=== PATIENT | male | born 1980 ===

== ENCOUNTER 2016-08-31 05:21 | Emergency (ER) | payer MEDICARE, OTHER ==
[2016-08-31 05:21] VITALS: BMI 32.3
[2016-08-31 05:45] VITALS: RESP 20
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
[2016-08-31 07:13] VITALS: BP 104/60; PULSE 59; TEMP 98.4; O2SAT 95
--- NOTE | 2016-08-31 09:30 | RAD ---
PROCEDURE: Radiographs of the Right Shoulder three views HISTORY: Right shoulder pain COMPARISON: No prior. FINDINGS: BONES: Normal. No fracture. JOINTS: Normal. Glenohumeral and acromioclavicular joints preserved. No osteoarthritis. SOFT TISSUES: Normal. OTHER FINDINGS: None. IMPRESSION: Negative acute. If pain persists, consider MRI.
== END 2016-08-31 07:12 | disposition home or self-care (01) ==
LOC: C.ER 05:21
DX: S40.011A Contusion of right shoulder, initial encounter (principal); S00.83XA Contusion of other part of head, initial encounter; Y08.02XA Assault by strike by baseball bat, initial encounter; Y92.9 Unspecified place or not applicable

== ENCOUNTER 2017-01-02 18:30 | Emergency (ER) | payer MEDICARE, OTHER ==
[2017-01-02 18:30] VITALS: BMI 32.3
[2017-01-02 18:38] VITALS: BP 125/76; PULSE 81; RESP 18; TEMP 98.2; O2SAT 99
--- NOTE | 2017-01-02 18:57 | C.PDOC ---
History Of Present Illness 36 y/o male presents to the ED for evaluation of bilateral foot pain for the past several months. Pt reports that he is homeless, and he walks a lot. Otherwise, denies any injury, sensory changes, swelling, or fever. Time Seen by Provider: 01/02/17 18:42 Chief Complaint (Nursing): Lower Extremity Problem/Injury History Per: Patient History/Exam Limitations: no limitations Onset/Duration Of Symptoms: Days Current Symptoms Are (Timing): Still Present Recent travel outside of the [place]: No Additional History Per: Patient Past Medical History Reviewed: Historical Data, Nursing Documentation, Vital Signs Vital Signs: Last Vital Signs Temp 98.2 F 01/02/17 18:35 Pulse 81 01/02/17 18:35 Resp 18 01/02/17 18:35 BP 125/76 01/02/17 18:35 Pulse Ox 99 01/02/17 21:26 - Medical History PMH: Anxiety, Bipolar Disorder, Depression, Hepatitis, Schizophrenia Denies: HIV, HTN, Chronic Kidney Disease, Seizures, Sexually Transmitted Disease Surgical History: Appendectomy - [facility] Procedures GROUP PSYCHOTHERAPY (04/18/15) INDIVID PSYCHOTHERAP NEC (11/12/13) INDIVIDUAL PSYCHOTHERAPY, SUPPORTIVE (04/18/15) INJECT/INFUSE NEC (09/06/13) OTHER GROUP THERAPY (11/12/13) PSYCHIAT DRUG THERAP NEC (03/12/14) Family History: States: Unknown Family Hx - Social History Hx Tobacco Use: Yes Hx Alcohol Use: No Hx Substance Use: No - Immunization History Hx Tetanus Toxoid Vaccination: No Hx Influenza Vaccination: No Hx Pneumococcal Vaccination: No Review Of Systems Except As Marked, All Systems Reviewed And Found Negative. Constitutional: Negative for: Fever, Chills Musculoskeletal: Positive for: Foot Pain Neurological: Negative for: Weakness, Numbness Physical Exam - Physical Exam Appears: Non-toxic, No Acute Distress, Unkempt Skin: Warm, Dry, Other (hyperkeratosis to plantar aspect of bilateral feet, scaliness between toes, no ulcers) Head: Atraumatic, Normacephalic Extremity: Normal ROM (FROM of b/l feet), No Tenderness, Capillary Refill (< 2 sec.), No Deformity, No Swelling Extremity: Bilateral: Atraumatic Pulses: Left Dorsalis Pedis: Normal, Right Dorsalis Pedis: Normal Neurological/Psych: Oriented x3, Normal Speech, Normal Motor, Normal Sensation ED Course And Treatment O2 Sat by Pulse Oximetry: 99 (RA) Pulse Ox Interpretation: Normal Progress Note: Motrin po given for pain. Sx consistent with Tinea. On reassessment, patient is resting comfortably, and is in no acute distress. Patient was instructed to follow up with podiatry clinic in 1-2 days for further evaluation. Disposition Counseled Patient/Family Regarding: Diagnosis, Need For Followup, Rx Given - Disposition Referrals: Podiatry Clinic [Outside] Disposition: HOME/ ROUTINE Disposition Time: 19:15 Condition: STABLE Additional Instructions: apply cream to feet twice daily follow up in the podiatry clinic Prescriptions: Terbinafine HCl [Lamisil At] 30 gm TP BID #1 cream..g. 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 - Scribe Statement The provider has reviewed the documentation as recorded by the Scribe Uriel Castro All medical record entries made by the Gtibelisabeth were at my direction and personally dictated by me. I have reviewed the chart and agree that the record accurately reflects my personal performance of the history, physical exam, medical decision making, and the department course for this patient. I have also personally directed, reviewed, and agree with the discharge instructions and disposition.
== END 2017-01-02 19:16 | disposition home or self-care (01) ==
LOC: C.ER 18:30
DX: B35.3 Tinea pedis (principal); Z59.0 Homelessness